=== PATIENT | male | born 1950 | race Caucasian/White ===

== ENCOUNTER 2023-09-19 10:50 | Emergency (ER) | payer MEDICARE ==
--- NOTE | 2023-09-19 11:20 | ED Physician Documentation ---
PD HPI SYNCOPE - Stated complaint Stated Complaint: LT RIB PX - Chief complaint Chief Complaint: Neuro - History obtained from History obtained from: Patient - History of Present Illness Witnessed: Unwitnessed Timing - onset: How many hours ago (1-2) Duration: Minutes Preceding symptoms: Light headed (just briefly). No: Headache, Chest pain, Palpitations, Abdominal pain, Nausea / vomiting Associated symptoms: No: Chest pain, Dyspnea, Abdominal pain Contributing factors: Decreased PO intake (he states he does not drink much regular fluids. He does admit to 3-4 drinks of vodka nightly. No withdrawal symptoms during the day and waits until evening for drinking. He was vague answering when I asked if it has been increasing lately.), Just stood up (he states he had just gotten up from bed, still feeling sleepy. WEas doing okay and then felt lightheaded for few seconds, slumped to floor, striking left chest on sink. He does not think he completely passed out. Dearing semi-conscious for minute or so.), Other (he sleeps with oxygen nightly for his COPD and states he forgot ot use it last night. This is very unusual for him, he says and confirmed by his family member with him.). No: Recent med change Injury occurred: Other (left chest). No: Head injury, Neck injury Review of Systems Constitutional: denies: Fever, Chills Nose: denies: Rhinorrhea / runny nose, Congestion Throat: denies: Sore throat Respiratory: denies: Cough PD PAST MEDICAL HISTORY - Past Medical History Past Medical History: Yes Cardiovascular: Hypertension Respiratory: COPD (inhalersa nd nebulizers. Oxygen at [facility], not during the day unless PRN. ) Other Past Medical History: peripheral neuropathy - Past Surgical History Past Surgical History: No - Present Medications Home Medications: Ambulatory Orders Medication Instructions Recorded Confirmed Albuterol Sulfate 1.25 mg IH Q4HR PRN 09/19/23 09/19/23 DULoxetine [Cymbalta] 60 mg PO DAILY 09/19/23 09/19/23 Glycopyrrolate/Formoterol Fum 1 puffs IH BID 09/19/23 09/19/23 [Bevespi Aerosphere Inhaler] HYDROcod/ACETAM 5/325 [Freedom 5/325] 1 ea PO Q8H PRN #12 tablet 09/19/23 Ketoconazole [Nizoral A-D] 1 applic TP DAILY PRN 09/19/23 09/19/23 Losartan Potassium 100 mg PO DAILY 09/19/23 09/19/23 Magnesium Oxide [Mag Ox] 400 mg PO DAILY #30 tablet 09/19/23 Meloxicam [Mobic] 7.5 mg PO BID 10 Days #20 tablet 09/19/23 Metoprolol Tartrate [Lopressor] 25 mg PO BID 09/19/23 09/19/23 dilTIAZem HCL [Diltiazem 24Hr ER] 240 mg PO DAILY 09/19/23 09/19/23 - Allergies Allergies/Adverse Reactions: Allergies Allergy/AdvReac Type Severity Reaction Status Date / Time No Known Drug Allergies Allergy Verified 09/19/23 11:13 - Living Situation Living Situation: reports: With family Living Arrangement: reports: At home - Social History Does the pt smoke?: No Smoking Status: Former smoker Does the pt drink ETOH?: Yes ETOH Use: Liquor (3-4 vodka containing drinks nightly. None during the day per pt. ) Does the pt have substance abuse?: No - Immunizations Immunizations are current?: Yes - POLST Patient has POLST: No PD ED PE NORMAL - Vitals Vital signs reviewed: Yes - General General: Alert and oriented X 3, No acute distress, Well developed/nourished - HEENT HEENT: Atraumatic - Neck Neck: Supple, no meningeal sign, No bony TTP, No adenopathy - Cardiac Cardiac: RRR, No murmur - Respiratory Respiratory: Clear bilaterally, Other (chestwall tenderness left anterolateral chest at costal margin and cartilage area. No crepitance felt but he states he feels click at times. No bruising yet. ) - Abdomen Abdomen: Soft, Non tender - Back Back: No spinal TTP - Derm Derm: Normal color, Warm and dry - Neuro Neuro: Alert and oriented X 3, No motor deficit, No sensory deficit, Normal speech Eye Opening: Spontaneous Motor: Obeys Commands Verbal: Oriented GCS Score: 15 Results - Vitals Vitals: Oxygen O2 Source Room air Oxygen Flow Rate 2 - EKG (time done) 11:27 EKG releavant findings:: EKG personally interpreted by author of this note. Relevant findings are: Rate: Rate (enter#) (75) Rhythm: NSR [place]: Normal Intervals: Normal MA, Prolonged QT (borderline) Ischemia: Normal ST segments. No: ST elevation c/w ischemia, ST depression - Labs Labs: Laboratory Tests 09/19/23 09/19/23 09/19/23 11:25 11:25 11:25 WBC 11.9 H RBC 4.12 L Hgb 14.3 Hct 43.0 MCV 104.4 H MCH 34.7 H MCHC 33.3 RDW 12.2 Plt Count 402 MPV 10.4 Neut # (Auto) 9.3 H Lymph # (Auto) 1.3 L Nash # (Auto) 0.9 Eos # (Auto) 0.2 Baso # (Auto) 0.1 Absolute Nucleated RBC 0.00 Nucleated RBC % 0.0 Sodium 142 Potassium 3.6 Chloride 102 Carbon Dioxide 26 Anion Gap 14.0 H BUN 7 Creatinine 0.7 Estimated GFR (MDRD) 110 Glucose 112 H Calcium 8.8 Magnesium 1.3 L Total Bilirubin 0.5 AST 24 ALT 16 Alkaline Phosphatase 65 Troponin I High Sens 6.7 B-Natriuretic Peptide Total Protein 7.0 Albumin 4.1 Globulin 2.9 Albumin/Globulin Ratio 1.4 Lipase 23 Ethyl Alcohol 15.8 09/19/23 11:25 WBC RBC Hgb Hct MCV MCH MCHC RDW Plt Count MPV Neut # (Auto) Lymph # (Auto) Nash # (Auto) Eos # (Auto) Baso # (Auto) Absolute Nucleated RBC Nucleated RBC % Sodium Potassium Chloride Carbon Dioxide Anion Gap BUN Creatinine Estimated GFR (MDRD) Glucose Calcium Magnesium Total Bilirubin AST ALT Alkaline Phosphatase Troponin I High Sens B-Natriuretic Peptide 29 Total Protein Albumin Globulin Albumin/Globulin Ratio Lipase Ethyl Alcohol - Rads (name of study) chest CT Relevant Findings:: Prelim report reviewed (remote left posterior rib fractures. interstitial findings c/w COPD. No acute injuries. ), EMP independent interpretation of test PD Medical Decision Making - ED course Complexity details: reviewed results (Hgb glucose and nsodium are normal. Mag low at 1.3 BNP and Trop are normal so no signs of NM/CHF. ECG nonischemic, but borderline long QT, likely relates to underhydration and low Mag. Given fluids and Mag in ER. Given pain meds for the chest pain. Cautioned on use of it with alcohol. ), considered differential (near syncope with fall and struck ribs area, has pain. He had not worn his usual oxygen at night. He state nightly alcohol and perhaps some more than usual lately. Can check for lytes, CBC, ECG, and any signs of heart failure/NM as other causes. ), d/w patient Reviewed Lab Results: Chest CT without fractures, PTX, effusion or acute injury. Alcohol level is 15 and he did admit to night crinking of 3-4 drinks of vodka nightly. No trembling nor shakkiness during the day to sound like withdrawal symptoms. However is still at 15 MARVIN at 11 am, so does have a decent amount in evening. This may have likely contributed to his forgetting to use his oxygen, which also contributed to symptoms this morning. I feel his near syncope relates to combo of hydration levels, EtOH use increasing by the sounds of it, electrolyte imbalances. No more severe causes identified at this time. I did urge him to be more moderate/minimal with alcohol use. He did not want info on alcohol cessation per se. His granddaughter (or daughter) was with him and he permitted talking information of results and discussion with her there. Departure - Departure Disposition: 01 Home, Self Care Clinical Impression: Near syncope, Chest wall contusion, Hypomagnesemia, COPD (chronic obstructive pulmonary disease), Leg edema, right Condition: Stable Record reviewed to determine appropriate education?: Yes Instructions: ED Near Syncope Unkn Follow-Up: Ana Alfredo PA [Primary Care Provider] - Prescriptions: Magnesium Oxide [Mag Ox] 400 mg PO DAILY #30 tablet Meloxicam [Mobic] 7.5 mg PO BID 10 Days #20 tablet HYDROcod/ACETAM 5/325 [Freedom 5/325] 1 ea PO Q8H PRN #12 tablet PRN Reason: Pain Comments: Your CT scan does not show any rib fractures or organ injury from the fall. You will still be sore in the area from bruising. There may be some looseness of the cartilage where the rib joins with the cartilage. Likely this will clear up or firm up over the short-term. I would suggest some anti-inflammatories such as naproxen or meloxicam twice daily with food for the next 7 to 10 days. Add Tylenol 500 to 650 mg 4 times daily for pain. Add hydrocodone/acetaminophen if needed for worse pain. Be wary that it will cause some lightheadedness or somnolent and also constipation. I prescribed a small amount for a few days. Your magnesium was low and I wrote for a supplement for that over the next few weeks. Stay well-hydrated. Minimal or modest amounts of alcohol. Be sure to use your nighttime oxygen. I am presuming you are near fainting episodes this morning related to combination of low oxygen from not having had your overnight oxygen coupled with perhaps some alcohol effect and hydration levels. I sent your prescription to [facility] in [place]. I am prescribing a short course of narcotic pain medication for you. These are potentially dangerous and addictive medications that should be used carefully. These medications may constipate you. Take an [id number] stool softener such as docusate twice daily with plenty of water while taking these medications. If you go 24 hours without a bowel movement, take [id number] MiraLAX, per package instructions. Do not drink or drive while taking these medications. If you received narcotic or sedating medications while in the emergency department do not drive for 24 hours. Store this medication in a safe, secure p lace and out of reach of children. It is a violation of federal law to give or sell this medication to another person or to use in a manner other than prescribed. The ED will not refill narcotic prescriptions, including prescriptions lost or stolen. You can dispose of unwanted medications at the [facility]'s office or at several pharmacies such as [facility]. Forms: PCP List Discharge Date/Time: 09/19/23 15:44
--- NOTE | 2023-09-19 11:52 | XRAY Report ---
PROCEDURE: Chest 1 View X-Ray INDICATIONS: chest pain TECHNIQUE: One view of the chest was acquired. COMPARISON: None. FINDINGS: Surgical changes and devices: None. Lungs and pleura: No pleural effusions or pneumothorax. Bibasilar opacities and basilar reticular pr ominence. Mediastinum: Mediastinal contours appear normal. Heart size is normal. Bones and chest wall: Rib fractures of unknown chronicity of the left posterior fifth and sixth ribs . Given the bulbous appearance these may be remote healed fractures IMPRESSION: Left posterior rib fractures of unknown chronicity, favored to be remote Bibasilar opacities may represent atelectasis or infection not excluded. Reviewed by: Kirk Aguila MD on 09/19/2023 10:51 AM [facility] Approved by: Kirk Aguila MD on 09/19/2023 10:51 AM [facility] Station ID: [id number]
[2023-09-19] MEDS ORDERED: SODIUM CHLORIDE 0.9% 1,000 ML IV STA (12:20)
[2023-09-19 12:28] LABS: BASOPHILS # (AUTO) 0.1 10^3/uL (0.0-0.1); BASOPHILS % (AUTO) 0.9 %; EOSINOPHILS # (AUTO) 0.2 10^3/uL (0.0-0.7); EOSINOPHILS % (AUTO) 1.7 %; HGB - HEMOGLOBIN 14.3 g/dL (14.0-18.0); LYMPHOCYTES # (AUTO) 1.3 10^3/uL (1.5-3.5); LYMPHOCYTES % (AUTO) 10.9 %; MEAN CORPUSCULAR HEMOGLOBIN 34.7 pg (27.0-31.0); MEAN CORPUSCULAR HGB CONC 33.3 g/dL (32.0-36.0); MEAN CORPUSCULAR VOLUME 104.4 fL (80.0-94.0); MEAN PLATELET VOLUME 10.4 fL (7.4-11.4); MONOCYTES # (AUTO) 0.9 10^3/uL (0.0-1.0); MONOCYTES % (AUTO) 7.4 %; NEUTROPHILS # (AUTO) 9.3 10^3/uL (1.5-6.6); NEUTROPHILS % (AUTO) 78.3 %; PLT - PLATELET COUNT 402 10^3/uL (130-450); RED BLOOD COUNT 4.12 10^6/uL (4.70-6.10); RED CELL DISTRIBUTION WIDTH 12.2 % (12.0-15.0); WHITE BLOOD COUNT 11.9 x10^3/uL (4.8-10.8)
[2023-09-19 12:41] LABS: ALBUMIN 4.1 g/dL (3.2-5.5); ALBUMIN/GLOBULIN RATIO 1.4 (1.0-2.2); BILIRUBIN,TOTAL 0.5 mg/dL (0.2-1.0); CALCIUM 8.8 mg/dL (8.5-10.3); CREATININE 0.7 mg/dL (0.6-1.3); ETOH - ETHANOL 15.8 mg/dL; MAGNESIUM 1.3 mg/dL (1.7-2.3); POTASSIUM 3.6 mmol/L (3.5-4.5)
[2023-09-19] MEDS ORDERED: MAGNESIUM SULFATE 2 GRAM 2 GM/50 ML BAG IV ONE (13:27)
[2023-09-19] MEDS ORDERED: KETOROLAC 15 MG/ML VIAL IVP STA (14:08)
[2023-09-19] MEDS ORDERED: HYDROmorphone 0.5 MG/0.5 ML SYRINGE IVP STA (14:08)
--- NOTE | 2023-09-19 14:53 | CT Report ---
PROCEDURE: CHEST W INDICATIONS: fall with left posterolat chest pain CONTRAST: 100ml omni 300 TECHNIQUE: After the administration of intravenous contrast, 1 mm axial images were acquired from the pulmonary apices through the posterior costophrenic angles. Axial 5 mm soft tissue kernel reconstructions were performed as well as 8 mm axial MIP and coronal and sagittal 5 mm reformations. For radiation dose reduction, the following was used: automated exposure control, adjustment of mA and/or kV according to patient size. COMPARISON: Chest radiograph September 19, 2023 FINDINGS: Image quality: Excellent. Lungs and pleura: No consolidation. Centrilobular emphysematous changes at the lateral lungs with ret icular thickening in the basilar regions and suggestive of early honeycombing. No pleural effusions. No pneumothorax. Ill-defined spiculated nodular opacities which may reflect scarring within the righ t middle lobe bibasilar regions. Mediastinum: Heart size is normal. No pericardial effusion. No large vessel abnormality. No mediastin al adenopathy by size criteria. Chest wall and lower neck: Thyroid is unremarkable. No axillary or supraclavicular adenopathy by size . Bones: No aggressive osseous abnormality. Remote left-sided rib fractures of the left 5-7 ribs Upper Abdomen: Pancreatic calcifications. The remaining visualized abdominal structures are unremarka ble. IMPRESSION: Remote left-sided rib fractures without acute osseous findings. Interstitial thickening of the bilateral lungs suggestive of chronic interstitial lung disease. Centrilobular emphysematous changes of the lungs. Reviewed by: Kirk Aguila MD on 09/19/2023 1:52 PM [facility] Approved by: Kirk Aguila MD on 09/19/2023 1:52 PM [facility] Station ID: [id number]
--- NOTE | 2023-09-19 14:54 | Ultrasound Report ---
PROCEDURE: Duplex Ext Veins Right INDICATIONS: edema right leg for months TECHNIQUE: Real-time imaging, as well as color and pulse Doppler interrogation, were performed of the lower extr emity deep veins from the inguinal ligament to the popliteal fossa. Attempted visualization of the ca lf veins was performed. COMPARISON: None. FINDINGS: The deep veins are normally compressible, and free of intraluminal thrombus. Color and pu lse Doppler demonstrate normal phasic intraluminal flow. There is normal augmentation response to di stal compression maneuver. IMPRESSION: No deep venous thrombosis of the visualized lower extremity. Reviewed by: Kirk Aguila MD on 09/19/2023 1:53 PM [facility] Approved by: Kirk Aguila MD on 09/19/2023 1:53 PM [facility] Station ID: [id number]
[2023-09-19] MEDS ORDERED: iohexoL-300 100 ML VIAL IVP ONE (15:34)
[2023-09-19 15:52] VITALS: BP 167/94; O2SAT 98
== END 2023-09-19 15:44 | disposition home or self-care (01) ==
LOC: ED 10:50
DX: S20.219A Contusion of unspecified front wall of thorax, initial encounter (principal); W19.XXXA Unspecified fall, initial encounter; R55 Syncope and collapse; E83.42 Hypomagnesemia; J44.9 Chronic obstructive pulmonary disease, unspecified; R60.0 Localized edema; I10 Essential (primary) hypertension; G62.9 Polyneuropathy, unspecified; Z99.81 Dependence on supplemental oxygen; Z79.899 Other long term (current) drug therapy; Z87.891 Personal history of nicotine dependence
CPT/HCPCS: 36415; 71045; 71260; 80053; 83690; 83735; 83880; 84484; 85025; 93005; 93971; 96365; 96375; 99284; G0480; J1170; Q9967; 80320

== ENCOUNTER 2024-03-02 11:32 | Outpatient (CLI) | payer MEDICARE ==
[2024-03-02 14:20] LABS: BASOPHILS # (AUTO) 0.1 10^3/uL (0.0-0.1); BASOPHILS % (AUTO) 0.7 %; EOSINOPHILS # (AUTO) 0.2 10^3/uL (0.0-0.7); HCT - HEMATOCRIT 39.9 % (42.0-52.0); HGB - HEMOGLOBIN 13.5 g/dL (14.0-18.0); LYMPHOCYTES # (AUTO) 2.3 10^3/uL (1.5-3.5); LYMPHOCYTES % (AUTO) 15.5 %; MEAN CORPUSCULAR HEMOGLOBIN 36.6 pg (27.0-31.0); MEAN CORPUSCULAR HGB CONC 33.8 g/dL (32.0-36.0); MEAN CORPUSCULAR VOLUME 108.1 fL (80.0-94.0); MEAN PLATELET VOLUME 10.2 fL (7.4-11.4); MONOCYTES # (AUTO) 1.4 10^3/uL (0.0-1.0); MONOCYTES % (AUTO) 9.8 %; NEUTROPHILS # (AUTO) 10.6 10^3/uL (1.5-6.6); NEUTROPHILS % (AUTO) 72.5 %; PLT - PLATELET COUNT 365 10^3/uL (130-450); RED BLOOD COUNT 3.69 10^6/uL (4.70-6.10); RED CELL DISTRIBUTION WIDTH 12.4 % (12.0-15.0); WHITE BLOOD COUNT 14.6 x10^3/uL (4.8-10.8)
[2024-03-02 14:35] LABS: ALBUMIN 4.1 g/dL (3.2-5.5); ALBUMIN/GLOBULIN RATIO 1.3 (1.0-2.2); ALKALINE PHOSPHATASE 84 IU/L (42-121); ALT ALANINE AMINOTRANSFERASE 17 IU/L (10-60); AST ASPARTATE AMINOTRANSFERASE 27 IU/L (10-42); BUN - BLOOD UREA NITROGEN 8 mg/dL (6-20); CALCIUM 9.4 mg/dL (8.5-10.3); CARBON DIOXIDE - CO2 31 mmol/L (21-32); CHLORIDE 100 mmol/L (101-111); CHOL/HDL RATIO 2.2 (<5.0); CHOLESTEROL 170 mg/dL; CREATININE 0.7 mg/dL (0.6-1.3); GFR - MDRD 110 (>89); GLUCOSE 134 mg/dL (74-104); HDL CHOLESTEROL 79 mg/dL; LDL CHOLESTEROL,CALCULATED 76 mg/dL; SODIUM 139 mmol/L (135-145); TOTAL PROTEIN 7.2 g/dL (6.4-8.9); TRIGLYCERIDES 76 mg/dL (48-352); VLDL CHOLESTEROL 15 mg/dL
[2024-03-02 14:44] LABS: THYROID STIMULATING HORMONE 5.48 uIU/mL (0.34-5.60)
[2024-03-02 20:48] LABS: ESTIMATED AVERAGE GLUCOSE 114 mg/dL (70-100); HEMOGLOBIN A1c% 5.6 % (4.27-6.07)
== END 2024-03-02 11:33 | disposition home or self-care (01) ==
LOC: LAB.S 11:32
PROVIDERS: ATTEND Physician Assistant
DX: I10 Essential (primary) hypertension (principal); G62.9 Polyneuropathy, unspecified; R73.01 Impaired fasting glucose; R35.1 Nocturia
CPT/HCPCS: 36415; 80053; 80061; 82607; 83036; 83721; 84153; 84443; 85025

== ENCOUNTER 2024-06-11 12:04 | Outpatient (CLI) | payer MEDICARE ==
[2024-06-11 12:16] LABS: BASOPHILS # (AUTO) 0.1 10^3/uL (0.0-0.1); BASOPHILS % (AUTO) 0.8 %; HGB - HEMOGLOBIN 13.1 g/dL (14.0-18.0); RED CELL DISTRIBUTION WIDTH 12.8 % (12.0-15.0)
[2024-06-11 12:46] LABS: EOSINOPHILS # (AUTO) 0.2 10^3/uL (0.0-0.7); EOSINOPHILS % (AUTO) 1.5 %; HCT - HEMATOCRIT 39.4 % (42.0-52.0); LYMPHOCYTES # (AUTO) 2.3 10^3/uL (1.5-3.5); LYMPHOCYTES % (AUTO) 17.3 %; MEAN CORPUSCULAR HEMOGLOBIN 36.7 pg (27.0-31.0); MEAN CORPUSCULAR HGB CONC 33.2 g/dL (32.0-36.0); MEAN CORPUSCULAR VOLUME 110.4 fL (80.0-94.0); MEAN PLATELET VOLUME 10.2 fL (7.4-11.4); MONOCYTES # (AUTO) 1.4 10^3/uL (0.0-1.0); MONOCYTES % (AUTO) 10.4 %; NEUTROPHILS # (AUTO) 9.2 10^3/uL (1.5-6.6); NEUTROPHILS % (AUTO) 69.5 %; PLT - PLATELET COUNT 365 10^3/uL (130-450); RED BLOOD COUNT 3.57 10^6/uL (4.70-6.10); WHITE BLOOD COUNT 13.2 x10^3/uL (4.8-10.8)
[2024-06-11 12:47] LABS: SLIDE REVIEW? Indicated
[2024-06-11 12:48] LABS: PLATELET ESTIMATE, MANUAL NORMAL (130-450,000) (NORMAL); PLATELET MORPHOLOGY NORMAL APPEARANCE (NORMAL)
[2024-06-11 12:49] LABS: WBC MORPHOLOGY (MULTIPLE) NORMAL APPEARANCE (NORMAL)
[2024-06-11 20:44] LABS: ESTIMATED AVERAGE GLUCOSE 103 mg/dL (70-100); HEMOGLOBIN A1c% 5.2 % (4.27-6.07)
[2024-06-15 14:07] LABS: PATHOLOGIST SLIDE COMMENTS SEE SEPARATE REPORT
== END 2024-06-11 12:05 | disposition home or self-care (01) ==
LOC: LAB 12:04
PROVIDERS: ATTEND Physician Assistant
DX: E53.8 Deficiency of other specified B group vitamins (principal); R73.01 Impaired fasting glucose; D64.9 Anemia, unspecified
CPT/HCPCS: 36415; 82607; 83036; 85025